=== PATIENT | female | born 1980 | race Two or more races ===

== ENCOUNTER 2016-08-04 15:12 | Outpatient (CLI) | payer BC | END 2016-08-04 23:59 | disposition home or self-care (01) | LOC: LAB 15:12 | PROVIDERS: ATTEND Family Medicine | DX: Z12.4 Encounter for screening for malignant neoplasm of cervix (principal); Z11.3 Encounter for screening for infections with a predominantly sexual mode of transmission | CPT/HCPCS: 36415; 86592; 86803; 87210-TC; 87491; 88142 ==

== ENCOUNTER 2019-07-07 01:56 | Emergency (ER) | payer BC, OTHER ==
[2019-07-07 02:09] VITALS: BP 131/73
--- NOTE | 2019-07-07 02:20 | NUR ---
DOUGLAS SENT TO LAB
== END 2019-07-07 02:21 | disposition home or self-care (01) ==
LOC: ER 01:58
DX: Z03.818 Encounter for observation for suspected exposure to other biological agents ruled out (principal)
CPT/HCPCS: 99283; U0003

== ENCOUNTER 2019-07-31 02:57 | Emergency (ER) | payer OTHER ==
[~2019-07-31] VITALS: Ht 157.5 cm; Wt 79.8 kg
[2019-07-31 03:00] VITALS: BP 131/75
== END 2019-07-31 03:50 | disposition home or self-care (01) ==
LOC: ER 03:00
DX: Z11.59 Encounter for screening for other viral diseases (principal)
CPT/HCPCS: 99283; C9803; U0003

== ENCOUNTER 2019-08-09 02:48 | Emergency (ER) | payer OTHER ==
[~2019-08-09] VITALS: Ht 157.5 cm; Wt 79.8 kg
[2019-08-09 02:52] VITALS: BP 128/72
--- NOTE | 2019-08-09 02:55 | NUR ---
CORONAVIRUS SAMPLE SWAB COLLECTED AND SENT TO THE LAB.
--- NOTE | 2019-08-09 03:00 | NUR ---
Patient discharged to home in stable condition. Written and verbal after care instructions given. Patient verbalizes understanding of instruction.
== END 2019-08-09 03:02 | disposition home or self-care (01) ==
LOC: ER 02:48
DX: Z11.59 Encounter for screening for other viral diseases (principal)
CPT/HCPCS: 99283; C9803; U0003

== ENCOUNTER 2019-08-24 01:59 | Emergency (ER) | payer OTHER ==
[~2019-08-24] VITALS: Ht 157.5 cm; Wt 79.8 kg
[2019-08-24 02:07] VITALS: BP 151/99
== END 2019-08-24 02:30 | disposition home or self-care (01) ==
LOC: ER 02:02
DX: Z11.59 Encounter for screening for other viral diseases (principal)
CPT/HCPCS: 99283; C9803; U0003

== ENCOUNTER 2019-08-31 02:23 | Emergency (ER) | payer OTHER ==
[~2019-08-31] VITALS: Ht 157.5 cm; Wt 79.8 kg
[2019-08-31 02:24] VITALS: BP 134/65
--- NOTE | 2019-09-01 04:55 | NUR ---
RESULT RECEIVED FROM LAB. (-) COVID
== END 2019-08-31 03:03 | disposition home or self-care (01) ==
LOC: ER 02:23
DX: Z11.59 Encounter for screening for other viral diseases (principal)
CPT/HCPCS: 99283; C9803; U0003

== ENCOUNTER 2019-09-06 02:13 | Emergency (ER) | payer OTHER ==
[~2019-09-06] VITALS: Ht 157.5 cm; Wt 79.8 kg
[2019-09-06 02:15] VITALS: BP 124/62
--- NOTE | 2019-09-06 02:38 | NUR ---
DOUGLAS SENT TO LAB
--- NOTE | 2019-09-06 21:48 | NUR ---
LAB CALLED REGARDING COVID NEGATIVE RESULT.
== END 2019-09-06 02:39 | disposition home or self-care (01) ==
LOC: ER 02:19
DX: Z11.59 Encounter for screening for other viral diseases (principal)
CPT/HCPCS: 99283; C9803; U0003

== ENCOUNTER 2019-09-14 02:08 | Emergency (ER) | payer OTHER ==
[~2019-09-14] VITALS: Ht 162.6 cm; Wt 74.8 kg
[2019-09-14 02:22] VITALS: BP 138/78
--- NOTE | 2019-09-14 02:30 | NUR ---
COVID SWAB COLLECTED AND SENT TO LAB
== END 2019-09-14 02:31 | disposition home or self-care (01) ==
LOC: ER 02:08
DX: Z11.59 Encounter for screening for other viral diseases (principal)
CPT/HCPCS: 99283; C9803; U0003

== ENCOUNTER 2019-09-20 02:13 | Emergency (ER) | payer OTHER ==
[~2019-09-20] VITALS: Ht 162.6 cm; Wt 74.8 kg
[2019-09-20 02:13] VITALS: BP 135/62
== END 2019-09-20 02:35 | disposition home or self-care (01) ==
LOC: ER 02:13
DX: Z20.828 Contact with and (suspected) exposure to other viral communicable diseases (principal)
CPT/HCPCS: 99283; C9803; U0003

== ENCOUNTER 2019-09-27 00:39 | Emergency (ER) | payer OTHER ==
[~2019-09-27] VITALS: Ht 162.6 cm; Wt 74.8 kg
[2019-09-27 00:39] VITALS: BP 125/80
--- NOTE | 2019-09-28 06:40 | NUR ---
LAB CALLED REGARDING NEGATIVE COVID RESULT
== END 2019-09-27 00:55 | disposition home or self-care (01) ==
LOC: ER 00:43
DX: Z20.828 Contact with and (suspected) exposure to other viral communicable diseases (principal)
CPT/HCPCS: 99283; C9803; U0003

== ENCOUNTER 2019-10-04 01:57 | Emergency (ER) | payer OTHER ==
[~2019-10-04] VITALS: Ht 162.6 cm; Wt 74.4 kg
[2019-10-04 02:03] VITALS: BP 122/79
== END 2019-10-04 02:14 | disposition home or self-care (01) ==
LOC: ER 01:57
DX: Z20.828 Contact with and (suspected) exposure to other viral communicable diseases (principal)
CPT/HCPCS: 99283; C9803; U0003

== ENCOUNTER 2019-10-12 01:52 | Emergency (ER) | payer OTHER ==
[~2019-10-12] VITALS: Ht 162.6 cm; Wt 74.4 kg
[2019-10-12 01:55] VITALS: BP 124/63
--- NOTE | 2019-10-12 02:15 | NUR ---
COVID SWAB COLLECT AND SENT TO LAB.
== END 2019-10-12 02:16 | disposition home or self-care (01) ==
LOC: ER 01:52
DX: Z20.828 Contact with and (suspected) exposure to other viral communicable diseases (principal)
CPT/HCPCS: 99283; C9803; U0003

== ENCOUNTER 2019-10-18 01:29 | Emergency (ER) | payer OTHER ==
[~2019-10-18] VITALS: Ht 162.6 cm; Wt 74.4 kg
[2019-10-18 01:32] VITALS: BP 134/84
== END 2019-10-18 01:54 | disposition home or self-care (01) ==
LOC: ER 01:35
DX: Z20.828 Contact with and (suspected) exposure to other viral communicable diseases (principal)
CPT/HCPCS: 99283; C9803; U0003

== ENCOUNTER 2019-10-30 02:25 | Emergency (ER) | payer OTHER | END 2019-10-30 02:53 | disposition home or self-care (01) | DX: Z20.828 Contact with and (suspected) exposure to other viral communicable diseases (principal) | CPT/HCPCS: 99283; C9803; U0003 ==

== ENCOUNTER 2019-11-06 01:24 | Emergency (ER) | payer BC, OTHER ==
[~2019-11-06] VITALS: Ht 162.6 cm; Wt 74.4 kg
[2019-11-06 01:25] VITALS: BP 124/62
== END 2019-11-06 01:46 | disposition home or self-care (01) ==
LOC: ER 01:26
DX: Z20.828 Contact with and (suspected) exposure to other viral communicable diseases (principal)
CPT/HCPCS: 99283; C9803; U0003

== ENCOUNTER 2019-11-14 02:06 | Emergency (ER) | payer OTHER ==
[~2019-11-14] VITALS: Ht 162.6 cm; Wt 74.4 kg
[2019-11-14 02:09] VITALS: BP 132/67
--- NOTE | 2019-11-14 02:19 | NUR ---
UNABLE TO DEPART DUE TO [employer] APPLICATION ERROR.
== END 2019-11-14 02:19 | disposition home or self-care (01) ==
LOC: ER 02:06
DX: Z20.828 Contact with and (suspected) exposure to other viral communicable diseases (principal)
CPT/HCPCS: 99283; C9803; U0003

== ENCOUNTER 2019-11-20 01:08 | Emergency (ER) | payer OTHER ==
[~2019-11-20] VITALS: Ht 162.6 cm; Wt 74.4 kg
[2019-11-20 01:16] VITALS: BP 139/75
== END 2019-11-20 01:51 | disposition home or self-care (01) ==
LOC: ER 01:12
DX: Z20.828 Contact with and (suspected) exposure to other viral communicable diseases (principal)
CPT/HCPCS: 99283; C9803; U0003

== ENCOUNTER 2019-11-29 02:54 | Emergency (ER) | payer OTHER ==
[~2019-11-29] VITALS: Ht 162.6 cm; Wt 74.4 kg
[2019-11-29 02:58] VITALS: BP 128/62
== END 2019-11-29 03:10 | disposition home or self-care (01) ==
LOC: ER 02:54
DX: Z20.828 Contact with and (suspected) exposure to other viral communicable diseases (principal)
CPT/HCPCS: 99283; C9803; U0003

== ENCOUNTER 2019-12-04 01:41 | Emergency (ER) | payer OTHER ==
[~2019-12-04] VITALS: Ht 162.6 cm; Wt 74.4 kg
[2019-12-04 01:41] VITALS: BP 127/62
== END 2019-12-04 02:03 | disposition home or self-care (01) ==
LOC: ER 01:42
DX: Z20.828 Contact with and (suspected) exposure to other viral communicable diseases (principal)
CPT/HCPCS: 99283; C9803; U0003

== ENCOUNTER 2019-12-10 23:38 | Emergency (ER) | payer OTHER ==
[~2019-12-10] VITALS: Ht 162.6 cm; Wt 74.4 kg
[2019-12-10 23:39] VITALS: BP 131/76
== END 2019-12-11 00:14 | disposition home or self-care (01) ==
LOC: ER 23:39
DX: Z20.828 Contact with and (suspected) exposure to other viral communicable diseases (principal)
CPT/HCPCS: 99283; C9803; U0003

== ENCOUNTER 2019-12-17 23:33 | Emergency (ER) | payer OTHER ==
[~2019-12-17] VITALS: Ht 162.6 cm; Wt 73.5 kg
[2019-12-17 23:35] VITALS: BP 119/72
== END 2019-12-18 00:26 | disposition home or self-care (01) ==
LOC: ER 23:33
DX: Z20.828 Contact with and (suspected) exposure to other viral communicable diseases (principal)
CPT/HCPCS: 99283; C9803; U0003

== ENCOUNTER 2019-12-25 00:33 | Emergency (ER) | payer OTHER ==
[~2019-12-25] VITALS: Ht 162.6 cm; Wt 73.5 kg
[2019-12-25 00:35] VITALS: BP 124/65
== END 2019-12-25 00:57 | disposition home or self-care (01) ==
LOC: ER 00:34
DX: Z20.828 Contact with and (suspected) exposure to other viral communicable diseases (principal)
CPT/HCPCS: 99283; C9803; U0003

== ENCOUNTER 2020-01-01 01:53 | Emergency (ER) | payer OTHER ==
[~2020-01-01] VITALS: Ht 162.6 cm; Wt 73.5 kg
[2020-01-01 02:04] VITALS: BP 128/86
== END 2020-01-01 03:02 | disposition home or self-care (01) ==
LOC: ER 01:57
DX: Z20.828 Contact with and (suspected) exposure to other viral communicable diseases (principal)
CPT/HCPCS: 99283; C9803; U0003

== ENCOUNTER 2020-01-07 23:09 | Emergency (ER) | payer OTHER ==
[~2020-01-07] VITALS: Ht 162.6 cm; Wt 73.5 kg
[2020-01-07 23:16] VITALS: BP 128/68
== END 2020-01-08 00:02 | disposition home or self-care (01) ==
LOC: ER 23:14
DX: Z20.828 Contact with and (suspected) exposure to other viral communicable diseases (principal)
CPT/HCPCS: 99283; C9803; U0003

== ENCOUNTER 2020-01-15 02:13 | Emergency (ER) | payer OTHER ==
[~2020-01-15] VITALS: Ht 162.6 cm; Wt 73.5 kg
[2020-01-15 02:18] VITALS: BP 128/75
--- NOTE | 2020-01-15 02:32 | NUR ---
Patient discharged to home in stable condition. Written and verbal after care instructions given. Patient verbalizes understanding of instruction. pt. ambulatory with a steady gait
== END 2020-01-15 02:33 | disposition home or self-care (01) ==
LOC: ER 02:15
DX: Z20.828 Contact with and (suspected) exposure to other viral communicable diseases (principal)
CPT/HCPCS: 99283; C9803; U0003

== ENCOUNTER 2020-01-22 01:25 | Emergency (ER) | payer OTHER ==
[~2020-01-22] VITALS: Ht 162.6 cm; Wt 73.5 kg
[2020-01-22 01:28] VITALS: BP 119/68
== END 2020-01-22 01:44 | disposition home or self-care (01) ==
LOC: ER 01:29
DX: Z20.828 Contact with and (suspected) exposure to other viral communicable diseases (principal)
CPT/HCPCS: 99283; C9803; U0003

== ENCOUNTER 2020-01-29 03:00 | Emergency (ER) | payer OTHER ==
[~2020-01-29] VITALS: Ht 162.6 cm; Wt 73.5 kg
[2020-01-29 03:04] VITALS: BP 128/79
== END 2020-01-29 03:49 | disposition home or self-care (01) ==
LOC: ER 03:00
DX: Z20.828 Contact with and (suspected) exposure to other viral communicable diseases (principal)
CPT/HCPCS: 99283; C9803; U0003

== ENCOUNTER 2020-02-01 02:54 | Emergency (ER) | payer OTHER ==
[~2020-02-01] VITALS: Ht 162.6 cm; Wt 73.5 kg
[2020-02-01 02:56] VITALS: BP 132/65
== END 2020-02-01 03:30 | disposition home or self-care (01) ==
LOC: ER 02:56
DX: Z20.828 Contact with and (suspected) exposure to other viral communicable diseases (principal)
CPT/HCPCS: 99283; C9803; U0003

== ENCOUNTER 2020-02-04 23:59 | Emergency (ER) | payer OTHER ==
[~2020-02-04] VITALS: Ht 162.6 cm; Wt 73.5 kg
[2020-02-05 00:04] VITALS: BP 122/68
== END 2020-02-05 00:32 | disposition home or self-care (01) ==
LOC: ER 02-05 00:07
DX: Z20.828 Contact with and (suspected) exposure to other viral communicable diseases (principal)
CPT/HCPCS: 99283; C9803; U0003

== ENCOUNTER 2020-02-19 01:27 | Emergency (ER) | payer OTHER ==
[~2020-02-19] VITALS: Ht 162.6 cm; Wt 73.5 kg
[2020-02-19 01:31] VITALS: BP 123/59
== END 2020-02-19 01:49 | disposition home or self-care (01) ==
LOC: ER 01:31
DX: Z20.822 Contact with and (suspected) exposure to COVID-19 (principal)
CPT/HCPCS: 99283; C9803; U0003

== ENCOUNTER 2020-02-19 08:28 | Outpatient (CLI) | payer BC ==
[2020-02-19 09:44] LABS: BASOPHILS # (AUTO) 0.1 /CMM (0.0-0.2); BASOPHILS % (AUTO) 0.5 % (0.0-2.0); BILIRUBIN,TOTAL 0.4 mg/dL (0.2-1.0); CALCIUM, SERUM 8.9 mg/dL (8.5-10.1); CREATININE 0.7 mg/dL (0.6-1.3); EOSINOPHILS % (AUTO) 1.8 % (0.0-6.0); HEMATOCRIT 40 % (33-45); HEMOGLOBIN 12.8 g/dL (11.5-14.8); LYMPHOCYTES # (AUTO) 3.7 /CMM (0.8-4.8); LYMPHOCYTES % (AUTO) 31.5 % (20.0-44.0); MEAN CORPUSCULAR HGB CONC 32 g/dl (31.0-36.0); MEAN CORPUSCULAR VOLUME 81 fL (82-100); MONOCYTES % (AUTO) 8.4 % (2.0-12.0); NEUTROPHILS # (AUTO) 6.8 /CMM (1.8-8.9); NEUTROPHILS % (AUTO) 57.8 % (43.0-81.0); PLATELET COUNT (AUTO) 261 /CMM (150-450); POTASSIUM 3.4 mmol/L (3.5-5.1); RED BLOOD CELL COUNT(AUTO) 4.92 MIL/uL (4.0-5.2); TOTAL PROTEIN, SERUM 8.2 g/dL (6.4-8.2); WHITE BLOOD COUNT (AUTO) 11.8 K/uL (4.3-11.0)
[2020-02-19 09:59] LABS: T4 (THYROXINE) 12.2 ug/dL (4.7-13.3); THYROID STIMULATING HORMONE 7.118 uIU/mL (0.358-3.74)
== END 2020-02-19 23:59 | disposition home or self-care (01) ==
LOC: LAB 08:28
PROVIDERS: ATTEND Family Medicine
DX: I10 Essential (primary) hypertension (principal); E11.9 Type 2 diabetes mellitus without complications; E55.9 Vitamin D deficiency, unspecified; Z79.899 Other long term (current) drug therapy
CPT/HCPCS: 36415; 80053-TC; 80061-TC; 82306; 84436-TC; 84443-TC; 85025-TC

== ENCOUNTER 2020-02-25 23:46 | Emergency (ER) | payer BC, OTHER ==
[~2020-02-25] VITALS: Ht 162.6 cm; Wt 73.5 kg
[2020-02-25 23:59] VITALS: BP 132/69
== END 2020-02-26 00:24 | disposition home or self-care (01) ==
LOC: ER 23:50
DX: Z20.822 Contact with and (suspected) exposure to COVID-19 (principal)
CPT/HCPCS: 99283; C9803; U0003

== ENCOUNTER 2020-02-29 03:48 | Emergency (ER) | payer OTHER ==
[~2020-02-29] VITALS: Ht 162.6 cm; Wt 72.6 kg
[2020-02-29 03:52] VITALS: BP 128/69
== END 2020-02-29 04:36 | disposition home or self-care (01) ==
LOC: ER 03:48
DX: Z20.822 Contact with and (suspected) exposure to COVID-19 (principal)
CPT/HCPCS: 99283; C9803; U0003

== ENCOUNTER 2020-03-04 01:00 | Emergency (ER) | payer OTHER ==
[~2020-03-04] VITALS: Ht 172.7 cm; Wt 72.6 kg
[2020-03-04 01:00] VITALS: BP 132/64
== END 2020-03-04 01:26 | disposition home or self-care (01) ==
LOC: ER 01:03
DX: Z20.822 Contact with and (suspected) exposure to COVID-19 (principal)
CPT/HCPCS: 99283; C9803; U0003

== ENCOUNTER 2020-03-06 01:37 | Emergency (ER) | payer OTHER ==
[~2020-03-06] VITALS: Ht 172.7 cm; Wt 72.6 kg
[2020-03-06 01:41] VITALS: BP 131/84
== END 2020-03-06 01:58 | disposition home or self-care (01) ==
LOC: ER 01:40
DX: Z20.822 Contact with and (suspected) exposure to COVID-19 (principal)
CPT/HCPCS: 99283; C9803; U0003

== ENCOUNTER 2020-03-11 00:34 | Emergency (ER) | payer OTHER ==
[~2020-03-11] VITALS: Ht 157.5 cm; Wt 77.1 kg
[2020-03-11 00:35] VITALS: BP 128/67
== END 2020-03-11 00:58 | disposition home or self-care (01) ==
LOC: ER 00:38
DX: Z20.822 Contact with and (suspected) exposure to COVID-19 (principal)
CPT/HCPCS: 99283; C9803; U0003

== ENCOUNTER 2020-03-13 23:37 | Emergency (ER) | payer OTHER ==
[~2020-03-13] VITALS: Ht 157.5 cm; Wt 77.1 kg
[2020-03-13 23:52] VITALS: BP 142/86
== END 2020-03-14 00:09 | disposition home or self-care (01) ==
LOC: ER 23:44
DX: Z20.822 Contact with and (suspected) exposure to COVID-19 (principal)
CPT/HCPCS: 99283; C9803; U0003

== ENCOUNTER 2020-03-18 00:12 | Emergency (ER) | payer OTHER ==
[~2020-03-18] VITALS: Ht 165.1 cm; Wt 77.1 kg
[2020-03-18 00:17] VITALS: BP 118/78
== END 2020-03-18 01:09 | disposition home or self-care (01) ==
LOC: ER 00:16
DX: Z20.822 Contact with and (suspected) exposure to COVID-19 (principal)
CPT/HCPCS: 99283; C9803; U0003

== ENCOUNTER 2020-03-20 01:31 | Emergency (ER) | payer OTHER ==
[~2020-03-20] VITALS: Ht 157.5 cm; Wt 77.1 kg
[2020-03-20 01:38] VITALS: BP 131/80
== END 2020-03-20 01:46 | disposition home or self-care (01) ==
LOC: ER 01:31
DX: Z20.822 Contact with and (suspected) exposure to COVID-19 (principal)
CPT/HCPCS: 99283; C9803; U0003

== ENCOUNTER 2020-03-25 00:29 | Emergency (ER) | payer OTHER ==
[~2020-03-25] VITALS: Ht 157.5 cm; Wt 77.1 kg
[2020-03-25 00:33] VITALS: BP 124/63
== END 2020-03-25 01:17 | disposition home or self-care (01) ==
LOC: ER 00:34
DX: Z20.822 Contact with and (suspected) exposure to COVID-19 (principal)
CPT/HCPCS: 99283; C9803; U0003

== ENCOUNTER 2020-03-28 02:03 | Emergency (ER) | payer OTHER ==
[~2020-03-28] VITALS: Ht 157.5 cm; Wt 77.1 kg
[2020-03-28 02:13] VITALS: BP 125/65
== END 2020-03-28 03:06 | disposition home or self-care (01) ==
LOC: ER 02:03
DX: Z20.822 Contact with and (suspected) exposure to COVID-19 (principal)
CPT/HCPCS: 99283; C9803; U0003

== ENCOUNTER 2020-04-01 02:48 | Emergency (ER) | payer OTHER ==
[~2020-04-01] VITALS: Ht 165.1 cm; Wt 70.3 kg
[2020-04-01 02:51] VITALS: BP 118/72
== END 2020-04-01 03:35 | disposition home or self-care (01) ==
LOC: ER 02:53
DX: Z20.822 Contact with and (suspected) exposure to COVID-19 (principal)
CPT/HCPCS: 99283; C9803; U0003

== ENCOUNTER 2020-04-08 00:43 | Emergency (ER) | payer OTHER ==
[~2020-04-08] VITALS: Ht 157.5 cm; Wt 70.3 kg
[2020-04-08 00:43] VITALS: BP 128/85
== END 2020-04-08 01:54 | disposition home or self-care (01) ==
LOC: ER 00:43
DX: Z20.822 Contact with and (suspected) exposure to COVID-19 (principal)
CPT/HCPCS: 99283; C9803; U0003

== ENCOUNTER 2020-04-15 02:08 | Emergency (ER) | payer OTHER ==
[~2020-04-15] VITALS: Ht 157.5 cm; Wt 70.3 kg
[2020-04-15 02:10] VITALS: BP 136/84
== END 2020-04-15 02:35 | disposition home or self-care (01) ==
LOC: ER 02:14
DX: Z20.822 Contact with and (suspected) exposure to COVID-19 (principal)
CPT/HCPCS: 99283; C9803; U0003

== ENCOUNTER 2020-04-21 00:47 | Emergency (ER) | payer OTHER ==
[~2020-04-21] VITALS: Ht 157.5 cm; Wt 70.3 kg
[2020-04-21 00:52] VITALS: BP 129/67
== END 2020-04-21 01:44 | disposition home or self-care (01) ==
LOC: ER 00:53
DX: Z20.822 Contact with and (suspected) exposure to COVID-19 (principal)
CPT/HCPCS: 99283; C9803; U0003

== ENCOUNTER 2020-04-29 02:13 | Emergency (ER) | payer OTHER ==
[~2020-04-29] VITALS: Ht 157.5 cm; Wt 70.3 kg
[2020-04-29 02:16] VITALS: BP 134/79
== END 2020-04-29 02:50 | disposition home or self-care (01) ==
LOC: ER 02:17
DX: Z20.822 Contact with and (suspected) exposure to COVID-19 (principal)
CPT/HCPCS: 99283; C9803; U0003

== ENCOUNTER 2020-05-05 23:21 | Emergency (ER) | payer OTHER ==
[~2020-05-05] VITALS: Ht 157.5 cm; Wt 70.3 kg
[2020-05-05 23:25] VITALS: BP 129/85
== END 2020-05-06 00:06 | disposition home or self-care (01) ==
LOC: ER 23:23
DX: Z20.822 Contact with and (suspected) exposure to COVID-19 (principal)
CPT/HCPCS: 99283; C9803; U0003

== ENCOUNTER 2020-05-12 01:04 | Emergency (ER) | payer OTHER ==
[~2020-05-12] VITALS: Ht 157.5 cm; Wt 70.3 kg
[2020-05-12 01:07] VITALS: BP 122/77
== END 2020-05-12 01:28 | disposition home or self-care (01) ==
LOC: ER 01:09
DX: Z20.822 Contact with and (suspected) exposure to COVID-19 (principal)
CPT/HCPCS: 99283; C9803; U0003

== ENCOUNTER 2020-05-20 02:09 | Emergency (ER) | payer OTHER ==
[~2020-05-20] VITALS: Ht 157.5 cm; Wt 70.3 kg
[2020-05-20 02:13] VITALS: BP 138/77
== END 2020-05-20 02:46 | disposition home or self-care (01) ==
LOC: ER 02:11
DX: Z20.822 Contact with and (suspected) exposure to COVID-19 (principal)
CPT/HCPCS: 99283; C9803; U0003

== ENCOUNTER 2020-05-27 03:43 | Emergency (ER) | payer OTHER ==
[~2020-05-27] VITALS: Ht 157.5 cm; Wt 70.3 kg
[2020-05-27 03:52] VITALS: BP 129/84
== END 2020-05-27 04:00 | disposition home or self-care (01) ==
LOC: ER 03:48
DX: Z20.822 Contact with and (suspected) exposure to COVID-19 (principal)
CPT/HCPCS: 99283; C9803; U0003

== ENCOUNTER 2020-06-03 02:39 | Emergency (ER) | payer OTHER ==
[~2020-06-03] VITALS: Ht 157.5 cm; Wt 70.3 kg
[2020-06-03 02:39] VITALS: BP 125/61
== END 2020-06-03 03:06 | disposition home or self-care (01) ==
LOC: ER 02:43
DX: Z20.822 Contact with and (suspected) exposure to COVID-19 (principal)
CPT/HCPCS: 99283; C9803; U0003

== ENCOUNTER 2020-06-09 02:09 | Emergency (ER) | payer OTHER ==
[~2020-06-09] VITALS: Ht 157.5 cm; Wt 70.3 kg
[2020-06-09 02:09] VITALS: BP 123/75
== END 2020-06-09 03:55 | disposition home or self-care (01) ==
LOC: ER 02:12
DX: Z20.822 Contact with and (suspected) exposure to COVID-19 (principal)
CPT/HCPCS: 99283; C9803; U0003

== ENCOUNTER 2020-06-17 02:17 | Emergency (ER) | payer OTHER ==
[~2020-06-17] VITALS: Ht 157.5 cm; Wt 70.3 kg
[2020-06-17 02:17] VITALS: BP 119/75
== END 2020-06-17 03:17 | disposition home or self-care (01) ==
LOC: ER 02:17
DX: Z20.822 Contact with and (suspected) exposure to COVID-19 (principal)
CPT/HCPCS: 99283; C9803; U0003

== ENCOUNTER 2020-06-24 01:03 | Emergency (ER) | payer OTHER ==
[~2020-06-24] VITALS: Ht 157.5 cm; Wt 77.1 kg
[2020-06-24 01:10] VITALS: BP 122/78
== END 2020-06-24 02:06 | disposition home or self-care (01) ==
LOC: ER 01:06
DX: Z20.822 Contact with and (suspected) exposure to COVID-19 (principal)
CPT/HCPCS: 99283; C9803; U0003

== ENCOUNTER 2020-07-01 03:28 | Emergency (ER) | payer OTHER ==
[~2020-07-01] VITALS: Ht 165.1 cm; Wt 77.1 kg
[2020-07-01 03:29] VITALS: BP 118/77
== END 2020-07-01 03:56 | disposition home or self-care (01) ==
LOC: ER 03:28
DX: Z20.822 Contact with and (suspected) exposure to COVID-19 (principal)
CPT/HCPCS: 99283; C9803; U0003

== ENCOUNTER 2020-07-06 23:52 | Emergency (ER) | payer OTHER ==
[~2020-07-06] VITALS: Ht 165.1 cm; Wt 77.1 kg
[2020-07-06 23:56] VITALS: BP 123/76
== END 2020-07-07 00:30 | disposition home or self-care (01) ==
LOC: ER 23:55
DX: Z20.822 Contact with and (suspected) exposure to COVID-19 (principal)
CPT/HCPCS: 99283; C9803; U0003

== ENCOUNTER → 2020-07-15 | Emergency (ER) | payer OTHER ==
[~2020-07-15] VITALS: Ht 165.1 cm; Wt 77.1 kg
[2020-07-15 00:50] VITALS: BP 121/85
== END | disposition home or self-care (01) ==
LOC: ER 00:42
DX: Z20.822 Contact with and (suspected) exposure to COVID-19 (principal)
CPT/HCPCS: 99283; C9803; U0003

== ENCOUNTER 2020-07-24 03:09 | Emergency (ER) | payer OTHER ==
[~2020-07-24] VITALS: Ht 165.1 cm; Wt 77.1 kg
[2020-07-24 03:09] VITALS: BP 111/82
== END 2020-07-24 04:22 | disposition home or self-care (01) ==
LOC: ER 03:18
DX: Z20.822 Contact with and (suspected) exposure to COVID-19 (principal)
CPT/HCPCS: 99283; C9803; U0003

== ENCOUNTER 2020-07-28 00:36 | Emergency (ER) | payer OTHER ==
[~2020-07-28] VITALS: Ht 157.5 cm; Wt 77.1 kg
[2020-07-28 00:51] VITALS: BP 128/85
== END 2020-07-28 01:23 | disposition home or self-care (01) ==
LOC: ER 00:37
DX: Z20.822 Contact with and (suspected) exposure to COVID-19 (principal)
CPT/HCPCS: 99283; C9803; U0003

== ENCOUNTER 2020-10-21 01:20 | Emergency (ER) | payer OTHER ==
[~2020-10-21] VITALS: Ht 157.5 cm; Wt 77.1 kg
[2020-10-21 01:21] VITALS: BP 141/85
== END 2020-10-21 03:26 | disposition home or self-care (01) ==
LOC: ER 01:23
DX: Z20.822 Contact with and (suspected) exposure to COVID-19 (principal); R03.0 Elevated blood-pressure reading, without diagnosis of hypertension
CPT/HCPCS: 99283; C9803; U0003